=== PATIENT | male | born 1945 | race Hispanic/Latino ===

== ENCOUNTER → 2018-05-17 | Outpatient (CLI) | payer MEDICARE, OTHER ==
[~2018-05-17] MED LIST: ALDACTAZIDE 251 EACH PO; ANDROGEL2.5 GM; ASPIRIN81 MG PO; DILTIAZEM ER60 MG PO; DIPHENOXYLATE-1 EACH PO; ENALAPRIL MALEA20 MG PO; FEOSOL45 MG PO; FUROSEMIDE20 MG PO; GABAPENTIN300 MG PO; HYDROCODON-ACE1 EAC9; HYDROCODON-ACE1 EAC9 PO; HYDROXYZINE HCL25 MG PO; LEXAPRO20 MG PO; LOMOTIL TABLET1 EACH PO; MAGNESIUM OXID400 MG PO; MECLIZINE HCL25 MG PO; METHOCARBAMOL750 MG PO; NAPROXEN500 M1 PO; NEURONTIN400 MG PO; NORVASC5 MG PO; PREVACID30 MG PO; PROTONIX IV40 MG PO; SOTALOL80 MG PO; TAMSULOSIN HCL0.4 MG PO
--- NOTE | 2018-05-17 14:34 | Diagnostic Imaging Report ---
EXAM: Renal Ultrasound INDICATION: ^ACUTE KIDNEY FAILURE COMPARISON: Renal ultrasound 01/07/2015 TECHNIQUE: Transverse and longitudinal images of the kidneys and bladder were obtained. FINDINGS: Right Kidney: Size: 9.2 cm, right renal cortex 1.3 cm. Appearance: Normal echogenicity. Collecting system: No hydronephrosis Stones: None Cyst/Mass: None Left Kidney: Size: 9.8 cm, left renal cortex 1.5 cm. Appearance: Normal echogenicity. Collecting system: No hydronephrosis Stones: None Cyst/Mass: None Bladder: Not well visualized due to patient's large body habitus. IMPRESSION: 1. Normal bilateral renal size and echogenicity. No hydronephrosis, stones or obstruction. 2. Unable to assess bladder given patient's large body habitus. Signed by: Dr. Kalyan Vega M.D. on 05/17/2018 2:31 PM
== END ==
LOC: US 13:23
PROVIDERS: ATTEND Urology
DX: N17.9 Acute kidney failure, unspecified (principal)
CPT/HCPCS: 76770

== ENCOUNTER → 2019-07-18 | Outpatient (CLI) | payer MEDICARE, OTHER ==
[~2019-07-18] MED LIST changes: +AMLODIPINE BESYL5 MG PO; +ASPIR 8181 MG PEG; +CALCIUM PO; +FISH OIL 1,2001 EACH PO; +IMODIUM2 MG PO; +MONTELUKAST SOD10 MG PO; +MULTIVITAMINS1 EAC7 PO; +NAPROXEN250 MG PO; +OMEPRAZOLE40 MG PO; +ONDANSETRON HCL4 MG PO; +OXYBUTYNIN CHLOR5 MG PO; +PREDNISONE20 MG PO; +SUCRALFATE1 GM PO; +TESTONE CI200 MG/1 M INJ; +[UNRECOGNIZED DRUG - OTHER] NS
== END ==
LOC: RAD 09:29
PROVIDERS: ATTEND Internal Medicine Cardiovascular Disease
DX: M79.604 Pain in right leg (principal); M79.605 Pain in left leg; R22.43 Localized swelling, mass and lump, lower limb, bilateral
CPT/HCPCS: 93970

== ENCOUNTER → 2019-07-25 | Outpatient (CLI) | payer MEDICARE, OTHER ==
--- NOTE | 2019-07-25 14:10 | Diagnostic Imaging Report ---
Renal ultrasound Clinical History: Chronic kidney disease Comparison: May 17, 2018 Discussion: Sonographic evaluation of the kidneys is performed. The kidneys have normal size and cortical echogenicity. The right kidney measures 9.5 cm in length. The left kidney measures 9.7 cm in length. There is no focal renal mass, hydronephrosis, or shadowing renal calculus. No perinephric fluid collection is seen. The bladder was not visualized. Impression: Normal sonographic evaluation of the kidneys. Signed by: Dr. Pelon Medellin MD on 07/25/2019 2:07 PM
== END ==
LOC: US 12:44
PROVIDERS: ATTEND Urology
DX: N18.9 Chronic kidney disease, unspecified (principal)
CPT/HCPCS: 76770

== ENCOUNTER → 2019-09-10 | Outpatient (CLI) | payer MEDICARE, OTHER | LOC: DX 09:04 | PROVIDERS: ATTEND Specialist | DX: M25.531 Pain in right wrist (principal) | CPT/HCPCS: 77080 ==

== ENCOUNTER → 2019-10-21 | Outpatient (CLI) | payer MEDICARE, OTHER ==
--- NOTE | 2019-10-21 14:22 | Diagnostic Imaging Report ---
EXAMINATION: CHEST SINGLE (NOT PORTABLE) INDICATION: Pacemaker check COMPARISON: Chest radiograph 02/06/2019 FINDINGS: LINES/TUBES:Left chest dual-lead pacer with no evidence of kink or fracture and the leads. LUNGS:The lungs are well-inflated. No focal consolidation or pulmonary edema. PLEURA:No pleural effusion or pneumothorax. MEDIASTINUM:The cardiomediastinal silhouette appears normal in size and shape. Atherosclerotic calcifications of the thoracic aorta. BONES/SOFT TISSUES:No acute osseous injury. Right and left total shoulder arthroplasty hardware. ABDOMEN:No free air under the diaphragm. IMPRESSION: No focal pneumonia or pulmonary edema. Unremarkable appearance of left chest dual-lead pacemaker. Signed by: Lynne Forrester MD on 10/21/2019 2:18 PM
== END ==
LOC: RAD 12:48
PROVIDERS: ATTEND Internal Medicine Cardiovascular Disease
DX: Z95.0 Presence of cardiac pacemaker (principal)
CPT/HCPCS: 71045

== ENCOUNTER → 2019-10-27 | Outpatient (CLI) | payer MEDICARE, OTHER ==
[~2019-10-27] MED LIST changes: +REGADENOSON 0.4 MG/5 ML SYR IV ONE
== END ==
LOC: NM 11:33
PROVIDERS: ATTEND Internal Medicine Cardiovascular Disease
DX: I20.8 Other forms of angina pectoris (principal)
CPT/HCPCS: 78452; 93017; A9502

== ENCOUNTER → 2019-11-19 | Day surgery (SDC) | payer MEDICARE, OTHER ==
[2019-11-14 15:11] LABS: BASOPHILS # (AUTO) 0.1 (0.0-0.1); BASOPHILS % 0.6 % (0.0-1.0); EOSINOPHILS # (AUTO) 0.2 (0.0-0.4); EOSINOPHILS % 2.3 % (0.0-6.0); HEMATOCRIT 41.7 % (38.2-49.6); HEMOGLOBIN 13.5 g/dL (14.0-18.0); LYMPHOCYTES # (AUTO) 1.9 (1.0-3.2); LYMPHOCYTES % 24.4 % (18.0-39.1); MEAN CORPUSCULAR HEMOGLOBIN 30.9 pg (28-32); MEAN CORPUSCULAR HGB CONC 32.4 g/dL (31-35); MEAN CORPUSCULAR VOLUME 95.4 fL (81-99); MONOCYTES # (AUTO) 0.8 (0.2-0.8); MONOCYTES % 9.9 % (4.4-11.3); NEUTROPHILS # (AUTO) 4.9 (2.1-6.9); NEUTROPHILS % 62.4 % (38.7-80.0); PLATELET COUNT 220 x10e3/uL (140-360); RED BLOOD COUNT 4.37 x10e6/uL (4.3-5.7); RED CELL DISTRIBUTION WIDTH 13.5 % (11.7-14.4)
[2019-11-14 15:30] LABS: ANION GAP 20.4 mmol/L (8-16); CREATININE, SERUM 1.48 mg/dL (0.72-1.25); POTASSIUM 3.4 mmol/L (3.5-5.1)
[~2019-11-19] VITALS: Ht 177.8 cm; Wt 138.3 kg
[2019-11-19] VITALS (8 sets, daily range): BP systolic 99–134; BP diastolic 34–91
[~2019-11-19] MED LIST changes: -ASPIR 8181 MG PEG; +ASPIR 8181 MG PO; +BACITRACIN 50,000 UNIT VIAL ONE; +CLINDAMYCIN 600MG / 50ML 50 ML IV ONE; +DIAZEPAM 5 MG TAB ONE; +FAMOTIDINE 20 MG TAB ONE; +FENTANYL CITRATE/PF 100MCG/2 ML INJ ONE; +FUROSEMIDE40 MG PO; +HYDRALAZINE HCL10 MG PO; +HYDROCHLOROTHIA25 MG PO; +LIDOCAINE 1% W/EPINEPHRINE 20 ML VIAL ONE; +MIDAZOLAM HCL 2 MG/2 ML VIAL ONE; +PROPAFENONE HC150 MG PO; -REGADENOSON 0.4 MG/5 ML SYR IV ONE; +SODIUM CHLORIDE 0.9% 1000ML 1,000 ML ONE; +SODIUM CHLORIDE 0.9% 500ML 1,000 ML ONE
== END | disposition home or self-care (01) ==
LOC: CATH LAB 09:00
PROVIDERS: ATTEND Internal Medicine Cardiovascular Disease
DX: Z45.010 Encounter for checking and testing of cardiac pacemaker pulse generator [battery] (principal); I49.5 Sick sinus syndrome; I48.0 Paroxysmal atrial fibrillation; I10 Essential (primary) hypertension; K21.9 Gastro-esophageal reflux disease without esophagitis; Z88.0 Allergy status to penicillin; Z88.8 Allergy status to other drugs, medicaments and biological substances; Z01.812 Encounter for preprocedural laboratory examination; Z11.59 Encounter for screening for other viral diseases; Z79.82 Long term (current) use of aspirin
CPT/HCPCS: 33228; 36415; 80048; 85025; C1785; J2250; J3010; J7030; J7040; U0002; 99152; 99153